=== PATIENT | female | born 1960 | race Hispanic/Latino ===

== ENCOUNTER 2023-03-20 06:26 | Day surgery (SDC) | payer MEDICAID, OTHER ==
[~2023-03-20] VITALS: Ht 157.5 cm; Wt 86.8 kg
[2023-03-20] VITALS (15 sets, daily range): BP systolic 104–127; BP diastolic 62–76; PULSE 68–94; RESP 14–20
[~2023-03-20 06:26] MED LIST: GLIM4TAB36 PO; LISI5TAB21 PO; METF-446 PO; SITA100T12 PO; VITAD50000 PO
[2023-03-20] MEDS ORDERED: PROPOFOL 10 MG/ML 20ML VIAL IV ONE (09:02)
== END 2023-03-20 10:49 | disposition home or self-care (01) ==
LOC: ENDO 06:26 → DAH 06:26 → ENDO 10:49
PROVIDERS: ATTEND Internal Medicine Gastroenterology
DX: R10.13 Epigastric pain (principal); R13.10 Dysphagia, unspecified; K29.70 Gastritis, unspecified, without bleeding; K22.2 Esophageal obstruction; I10 Essential (primary) hypertension; M19.90 Unspecified osteoarthritis, unspecified site; E11.9 Type 2 diabetes mellitus without complications; Z79.01 Long term (current) use of anticoagulants; Z79.899 Other long term (current) drug therapy; Z79.84 Long term (current) use of oral hypoglycemic drugs; Z72.89 Other problems related to lifestyle
CPT/HCPCS: 82948; 43239; 43248; J3490; A4620; A4215 ×2; A4223; A7002; A4222; A4221; A4663; J7030; A4606; J2704